=== PATIENT | female | born 1980 | race Caucasian/White ===

== ENCOUNTER → 2018-01-28 | Outpatient (CLI) | payer OTHER ==
[~2018-01-28] MED LIST: ACE3 PO; ACYC15OI TP; BACL-1 PO; BUPR-126 PO; BUTA1CAP4 PO; CEPH-13 PO; CLIN300C99 PO; DIAZ-305 PO; DIAZ2.5K3 PO; DIPH-741 PO; DOCU-416 PO; ESTR-35 PO; ESTROGEN PO; FAMO-67 PO; FAMO20TA28 PO; FEXO-72 PO; GABA-547 PO; GABA-549 PO; HYDR-3503 PO; HYDR-4309 PO; IBU600 PO; IBU800 PO; IBUP-1671 PO; IBUP600T22 PO; IBUP800T37 PO; L-NO1TBD6 PO; LEVO500T83 PO; LOR5 PO; LOR5/325 PO; LORA-802 PO; MED150I IM; METH4TAB56 PO; OMEP-218 PO; ONDA4TAB PO; OXYB10TA21 PO; OXYC-865 PO; OXYC-870 PO; OXYC1CAP42 PO; PHEN200T32 PO; PREN-170 PO; PRO25 PO; PROM-110 PO; SERT-1 PO; SERT-173 PO; TAMS0.4C25 PO; ZOLP-350 PO
--- NOTE | 2018-01-28 09:53 | RADIOLOGY IMAGING REPORT ---
[facility] PATIENT NAME: Laura Michel : 1980 MR: [id number] V: [id number] EXAM DATE: ORDERING PHYSICIAN: YVONNE NARAYAN TECHNOLOGIST: Location: [facility] - [place] Patient: Laura Michel : 1980 Visit/Account:[id number] Date of Sevice: 01/28/2018 L SPINE W/O CONTRAST COMPARISON: Lumbar spine MRI dated July 12, 2017 Additional pertinent history: Low back pain for 3 months with numbness and tingling in both feet. His tory of back surgery. Technique: Multiplanar multisequence lumbar spine MRI was performed without gadolinium enhancement. FINDINGS: Postoperative changes: Patient status post previous left hemilaminectomy at the level of L4-L5. Vertebral body heights and alignment: Negative. Vertebral marrow signal: Type I degenerative endplate changes at L4-L5. Distal thoracic cord and conus: Negative. The conus ends at L1-L2. Surrounding soft tissues: Negative. Inspection of the disc spaces reveal the following: L5-S1: Posterior broad-based disc protrusion with facet hypertrophic changes. Moderate bilateral neur al foraminal narrowing without canal stenosis. No change since previous exam. L4-L5: Postoperative changes with a posterior broad-based disc protrusion with facet hypertrophic tonny nges. Moderate bilateral neural foraminal narrowing with mild canal stenosis. Interval resolution of left lateral recess stenosis from previous exam. L3-L4: Negative. L2-L3: Negative. L1-L2: Negative. T12-L1: Negative. IMPRESSION: 1. Postoperative changes at L4-L5 with interval improvement in spondylitic change at L4-L5 from previ ous exam with improved left lateral recess stenosis. 2. Stable spondylitic change at L5-S1. 3. No new spondylitic change when compared to previous exam. Report Dictated By: Jameson Naik MD at 01/28/2018 9:44 AM Report E-Signed By: Jameson Naik MD at 01/28/2018 9:49 AM WSN:[email or web address]
== END ==
LOC: MRI 00:48
PROVIDERS: ATTEND Nurse Practitioner Psychiatric/Mental Health
DX: M47.897 Other spondylosis, lumbosacral region (principal); M48.061 Spinal stenosis, lumbar region without neurogenic claudication; Z98.890 Other specified postprocedural states
CPT/HCPCS: 72148

== ENCOUNTER → 2018-09-30 | Outpatient (CLI) | payer OTHER ==
[~2018-09-30] MED LIST changes: -HYDR-4309 PO; +HYDR-653 PO; +SOLI5TAB PO
== END ==
LOC: LAB 08:41
PROVIDERS: ATTEND Urology
DX: N20.0 Calculus of kidney (principal); R31.9 Hematuria, unspecified
CPT/HCPCS: 81001

== ENCOUNTER → 2018-10-07 | Outpatient (CLI) | payer OTHER ==
[~2018-10-07] MED LIST changes: +IOPAMIDOL 61% 100 ML INFUS BTL 100 ML ONE
--- NOTE | 2018-10-07 09:41 | RADIOLOGY IMAGING REPORT ---
FACILITY: [facility] PATIENT NAME: Laura Michel : 1980 MR: [id number] V: [id number] EXAM DATE: ORDERING PHYSICIAN: USHA LUND TECHNOLOGIST: Location: [facility] - [place] Patient: Laura Michel : 1980 Visit/Account:[id number] Date of Sevice: 10/07/2018 EXAMINATION: CT abdomen with IV contrast CT pelvis with IV contrast HISTORY: Hematuria. TECHNIQUE: Spiral scan was through the abdomen and pelvis during injection of nonionic iodinated in travenous contrast. Sagittal and coronal reformatted images are also submitted. One of the following dose optimization techniques was utilized in the performance of this exam: Autom ated exposure control; adjustment of the mA and/or kV according to the patient's size; or use of an i terative reconstruction technique. Specific details can be referenced in the facility's radiology C T exam operational policy. CONTRAST: 90 mL of IV Isovue-370 COMPARISON: Abdomen and pelvis CT with IV contrast dated 07/04/2017. FINDINGS: Lower chest: Negative. Liver / biliary: Negative. Pancreas: Negative. Spleen: Negative. Adrenal glands: Negative. Kidneys: 2 mm nonobstructing stone in the inferior left kidney. Otherwise negative. Pelvic structures: Negative. Bowel: Negative. Peritoneum / retroperitoneum / mesenteries: Negative. Vessels: Negative. Lymph nodes: Negative. Musculoskeletal / Body wall: Posterior decompression and fusion of L4-L5. No aggressive osseous lesi ons. IMPRESSION: 1. No acute abnormality in the abdomen or pelvis. 2. 2 mm nonobstructing stone in the inferior left kidney. Report Dictated By: Ahmet Mohamud MD at 10/07/2018 9:25 AM Report E-Signed By: Ahmet Mohamud MD at 10/07/2018 9:35 AM WSN:[email or web address]
== END ==
LOC: CT 01:07
PROVIDERS: ATTEND Urology
DX: N20.0 Calculus of kidney (principal)
CPT/HCPCS: 74177; Q9967

== ENCOUNTER → 2019-04-03 | Outpatient (CLI) | payer OTHER ==
[~2019-04-03] MED LIST changes: -IOPAMIDOL 61% 100 ML INFUS BTL 100 ML ONE
--- NOTE | 2019-04-03 15:19 | RADIOLOGY IMAGING REPORT ---
FACILITY: [facility] PATIENT NAME: Laura Michel : 1980 MR: [id number] V: [id number] EXAM DATE: ORDERING PHYSICIAN: YVONNE NARAYAN TECHNOLOGIST: Location: [facility] Patient: Laura Michel : 1980 Visit/Account:[id number] Date of Sevice: 04/03/2019 Exam type: L-SPINE 2 OR 3 VIEW History: Back surgery one year ago, leg swelling Comparison: MR lumbar spine January 28, 2018. Findings: Two lateral views the lumbar spine were submitted, one in flexion and one in extension There are postsurgical changes from posterior lumbar interbody fusion at L4-5 with bilateral pedicle screws and intervertebral disc spacer and short segment posterior fixation rods. There is no evidenc e of acute fractures or subluxations. There is mild disc space narrowing at L5-S1. Degenerative fac et joint changes are only partially imaged at L5-S1 IMPRESSION: 1. Post surgical changes from posterior lumbar interbody fusion at L4-5 Mild disc space narrowing L5-S1 Report Dictated By: Nora Hawk MD at 04/03/2019 3:08 PM Report E-Signed By: Nora Hawk MD at 04/03/2019 3:11 PM WSN:[email or web address]
== END ==
LOC: RAD 14:04
PROVIDERS: ATTEND Nurse Practitioner Psychiatric/Mental Health
DX: G61.9 Inflammatory polyneuropathy, unspecified (principal)
CPT/HCPCS: 72100